=== PATIENT | female | born 1960 | race Caucasian/White ===

== ENCOUNTER 2018-01-15 10:13 | Day surgery (SDC) | payer MEDICARE, OTHER ==
[~2018-01-15] VITALS: Ht 165.1 cm; Wt 121.3 kg
[~2018-01-15 10:13] MED LIST: ALBU90OI INH; AMLO5 PO; ASPI81EC; BUPR150T2; CALCIUM CITRATE; CALPHO600 PO; CITA20 PO; CYCL10 PO; DULO60; ERYT500 PO; ESTRADIOL; FISH1000; FISH1000 PO; GABA300 PO; HYDACE5 PO; LEFL20 PO; LEVFLO500 PO; LISI20 PO; Lomotil Tablet1 EACH PO; NAPR500 PO; NAPR550 PO; OMEP20ER PO; OXYACE5T PO; OXYC30ER PO; PENVK500; PREG100 PO; PROACE100 PO; PROGESTERONE CREAM; PROM25 PO; REMICADE; SIMPONI50 MG/0.1 SC; TRAM50 PO; TRIA50 PO; TRIHYD253A
[2018-01-15] MEDS ORDERED: DULO60 (10:44)
== END 2018-01-15 13:02 | disposition home or self-care (01) ==
LOC: ORSCSDS 10:13
PROVIDERS: Otolaryngology
PROC: 0CBV8ZX Excision of Left Vocal Cord, Via Natural or Artificial Opening Endoscopic, Diagnostic (ICD-10-PCS; principal; 2018-01-15 11:30)
DX: J38.3 Other diseases of vocal cords (principal); I10 Essential (primary) hypertension; G47.33 Obstructive sleep apnea (adult) (pediatric); F17.210 Nicotine dependence, cigarettes, uncomplicated; E66.01 Morbid (severe) obesity due to excess calories; Z68.41 Body mass index [BMI] 40.0-44.9, adult; Z79.899 Other long term (current) drug therapy
CPT/HCPCS: J1100; J2250; J3010

== ENCOUNTER 2019-04-16 12:03 | Day surgery (SDC) | payer MEDICARE, BC ==
[~2019-04-16] VITALS: Ht 165.1 cm; Wt 101.9 kg
[~2019-04-16 12:03] MED LIST changes: +DULO60 PO; +Dyazide 37.5-21 EACH PO; +HYDROCODON-ACET15 ML PO; +Nyamyc15 GM TOP; +SIMPONI AR50 MG/4 ML; +TRIA15CR3 TOP; +Voltaren100 GM; +ZESTRIL40 MG PO
== END 2019-04-16 15:11 | disposition home or self-care (01) ==
LOC: ORSCSDS 12:03
PROVIDERS: Student in an Organized Health Care Education/Training Program
PROC: 0DJD8ZZ Inspection of Lower Intestinal Tract, Via Natural or Artificial Opening Endoscopic (ICD-10-PCS; principal; 2019-04-16 13:30)
DX: K52.9 Noninfective gastroenteritis and colitis, unspecified (principal); Z86.010 Personal history of colon polyps; K63.5 Polyp of colon; K21.9 Gastro-esophageal reflux disease without esophagitis; G47.33 Obstructive sleep apnea (adult) (pediatric); I10 Essential (primary) hypertension; F32.9 Major depressive disorder, single episode, unspecified; G47.30 Sleep apnea, unspecified; D64.9 Anemia, unspecified; Z68.37 Body mass index [BMI] 37.0-37.9, adult; E66.9 Obesity, unspecified; Z79.899 Other long term (current) drug therapy
CPT/HCPCS: 88305; J2704; J7120

== ENCOUNTER → 2019-11-24 | Outpatient (CLI) | payer MEDICARE, BC | END | disposition home or self-care (01) | LOC: PLD 11:40 → LAB SHORT 11:40 | DX: L57.0 Actinic keratosis (principal) | CPT/HCPCS: 88305 ==

== ENCOUNTER → 2020-04-06 | Outpatient (CLI) | payer MEDICARE, BC | END | disposition home or self-care (01) | LOC: LAB SHORT 21:37 → LAB 21:37 | DX: L03.116 Cellulitis of left lower limb (principal) | CPT/HCPCS: 87070; 87077; 87147; 87186; 87205 ==

== ENCOUNTER 2025-04-19 12:45 | Emergency (ER) | payer OTHER ==
[~2025-04-19] VITALS: Ht 165.1 cm; Wt 104.3 kg
[~2025-04-19 12:45] MED LIST changes: -Cyclobenzaprine5 MG PO; -FUROSEMIDE40 MG PO; -LOSA50 PO; -POTA10T PO
[2025-04-19] MEDS ORDERED: Labetalol HCL 5 MG/ML 4ML Injection (Single Dose) IV ONE ×2 (15:40→18:25)
[2025-04-19] MEDS ORDERED: FUROSEMIDE40 MG PO (15:57)
[2025-04-19] MEDS ORDERED: LOSA50 PO (15:58)
[2025-04-19] MEDS ORDERED: POTA10T PO (15:58)
[2025-04-19] MEDS ORDERED: Cyclobenzaprine5 MG PO (15:58)
[2025-04-19 19:15] VITALS: BP 156/80
== END 2025-04-19 19:38 | disposition home or self-care (01) ==
LOC: ER 12:45
DX: I10 Essential (primary) hypertension (principal); Z87.891 Personal history of nicotine dependence; Z88.5 Allergy status to narcotic agent; Z88.2 Allergy status to sulfonamides; Z88.1 Allergy status to other antibiotic agents; Z79.899 Other long term (current) drug therapy; I16.1 Hypertensive emergency
CPT/HCPCS: 71046; 80053; 84484; 85025; 93005; 93010; 96374; 96376; 99284-25

== ENCOUNTER → 2025-04-19 | Outpatient (CLI) | payer OTHER ==
[~2025-04-19] MED LIST changes: +Cyclobenzaprine5 MG PO; +FUROSEMIDE40 MG PO; +LOSA50 PO; +POTA10T PO
[2025-04-19 11:01] LABS: BASOPHILS ABSOLUTE AUTO 0.08 K/mm3 (0.00-0.23); BASOPHILS PERCENT AUTO 1 % (0-2); EOSINOPHILS ABSOLUTE AUTO 0.21 K/mm3 (0.00-0.68); EOSINOPHILS PERCENT AUTO 2 % (0-6); Hematocrit 40.8 % (33.0-51.0); Hemoglobin 13.5 g/dL (11.5-16.0); IMMATURE GRAN ABSOLUTE AUTO 0.04 K/mm3 (0.00-0.10); IMMATURE GRAN PERCENT AUTO 0 % (0-1); LYMPHOCYTES ABSOLUTE AUTO 1.27 K/mm3 (0.84-5.20); LYMPHOCYTES PERCENT AUTO 14 % (21-46); MONOCYTES ABSOLUTE AUTO 0.44 K/mm3 (0.16-1.47); MONOCYTES PERCENT AUTO 5 % (4-13); Mean Corpuscular HGB Conc 33.1 g/dL (31.5-36.5); Mean Corpuscular Volume 88 fL (80-100); NEUTROPHILS ABSOLUTE AUTO 7.14 K/mm3 (1.96-9.15); NEUTROPHILS PERCENT AUTO 78 % (41-73); NRBC ABSOLUTE 0.00 K/mm3 (0.00-0.02); NRBC Auto 0.0 /100 WBC (0.0-0.2); Platelet Count 283 K/mm3 (150-400); RDW Coefficient Variation 14.0 % (11.7-14.2); RDW Standard Deviation 44.7 fL (35.1-46.3)
[2025-04-19 11:14] LABS: Alanine Aminotransfer (ALT/SGP 27.0 U/L (12-78); Albumin, Blood 3.9 g/dL (3.4-5.0); Albumin/Globulin Ratio 1.1 (0.8-1.8); Anion Gap 11.0 mmol/L (3-11); Aspartate Aminotrans (AST/SGOT 24.0 U/L (12-37); Bilirubin, Total 0.7 mg/dL (0.1-1.0); Blood Urea Nitrogen 15.0 mg/dL (8-24); CO2, Blood 29.0 mmol/L (21-32); Calcium, Blood 9.4 mg/dL (8.5-10.1); Chloride, Blood 104.0 mmol/L (98-108); Creatinine, Blood 0.82 mg/dL (0.40-1.00); Globulin, Blood 3.7 g/dL (2.2-4.0); Glucose, Blood 109.0 mg/dL (70-99); Potassium, Blood 3.1 mmol/L (3.5-5.5); Sodium, Blood 141.0 mmol/L (136-145); Total Protein, Blood 7.6 g/dL (6.4-8.2)
== END ==
LOC: LAB SHORT 10:58 → LAB 10:58
PROVIDERS: Physician Assistant
DX: I16.1 Hypertensive emergency (principal)
CPT/HCPCS: 80053; 84484; 85025